=== PATIENT | male | born 1990 | race Caucasian/White ===

== ENCOUNTER 2024-02-10 18:02 | Emergency (ER) | payer BC ==
[~2024-02-10] VITALS: Ht 172.7 cm; Wt 99.8 kg
[~2024-02-10 18:02] MED LIST: CEPH500 PO; Cyclobenzaprine5 MG PO; ESCI5; HYDACE5 PO; KETO10 PO; MAGCIT300 PO; METPRE4DP PO; NAPR500 PO; Naprosyn500 MG PO; OMEP40CA12 PO; OXYACE5T PO; SERT25; [UNRECOGNIZED DRUG - OTHER]
[2024-02-10 18:11] VITALS: BP 164/103
== END 2024-02-10 20:19 | disposition home or self-care (01) ==
LOC: ER 18:02
DX: M79.671 Pain in right foot (principal); Z87.891 Personal history of nicotine dependence; Z79.1 Long term (current) use of non-steroidal anti-inflammatories (NSAID); Z79.899 Other long term (current) drug therapy
CPT/HCPCS: 73630; 93971; 99284-25